=== PATIENT | female | born 1990 | race Caucasian/White ===

== ENCOUNTER 2018-08-27 09:46 | Emergency (ER) | payer OTHER | END 2018-08-27 10:53 | disposition home or self-care (01) | LOC: MADERS 09:46 | DX: S61.251A Open bite of left index finger without damage to nail, initial encounter (principal); F17.210 Nicotine dependence, cigarettes, uncomplicated; W55.01XA Bitten by cat, initial encounter | CPT/HCPCS: 99283 ==